=== PATIENT | female | born 1965 | race Caucasian/White ===

== ENCOUNTER 2023-11-20 15:08 | Emergency (ER) | payer BC ==
[2023-11-20 16:16] VITALS: BP 144/63; PULSE 75; RESP 19; TEMP 97.9; BMI 26.4
[2023-11-20] MEDS ORDERED: IBUPROFEN 600 MG TABLET (FP) PO ONE (16:32)
[2023-11-20] MEDS: IBUPROFEN 600 MG TABLET (FP) PO ONE (16:35)
== END 2023-11-20 17:54 | disposition home or self-care (01) ==
LOC: JERFT 15:08
DX: S93.402A Sprain of unspecified ligament of left ankle, initial encounter (principal); M25.572 Pain in left ankle and joints of left foot; X50.1XXA Overexertion from prolonged static or awkward postures, initial encounter
CPT/HCPCS: 73590-TC-LT-FY; 73610-TC-LT-FY; 73630-TC-LT; 99283-25

== ENCOUNTER → 2024-04-27 | Day surgery (SDC) | payer BC ==
[2024-04-26 10:07] VITALS: BMI 27.8
[~2024-04-27] MED LIST: LACTATED RINGERS SOLUTION 1,000 ML IV SCH; MIDAZOLAM HCL 2 MG/2 ML SINGLE DOSE VIAL ONE; ONDANSETRON 4 MG/2 ML VIAL IVPUSH PRN; PROPOFOL 20 ML ONE; oxyCODONE HCL 5 MG TABLET PO PRN
[2024-04-27] MEDS: ceFAZolin SODIUM 1 GM VIAL IVPB ONE (15:06)
[2024-04-27 16:27] VITALS: RESP 16; TEMP 96.4
[2024-04-27 17:10] VITALS: BP 125/70; PULSE 57
== END | disposition home or self-care (01) ==
LOC: JASU-SURG 05:09
PROVIDERS: ATTEND Urology
PROC: 0TVD8ZZ Restriction of Urethra, Via Natural or Artificial Opening Endoscopic (ICD-10-PCS; principal; 2024-04-27 14:00)
DX: N36.42 Intrinsic sphincter deficiency (ISD) (principal)
CPT/HCPCS: 51715; L8606; 36415; 82010; 82962; 94760